=== PATIENT | male | born 1945 | race Caucasian/White ===

== ENCOUNTER → 2025-05-05 | Outpatient (CLI) | payer MEDICARE, BC, SELFPAY ==
[2025-05-05 14:15] LABS: Anion Gap 10 (7-16); BUN/Creatinine Ratio 14 Ratio (12-20); Blood Urea Nitrogen 17 mg/dL (9-23); Calcium 10.0 mg/dL (8.3-10.6); Carbon Dioxide 29.1 mMol/L (20.0-31.0); Chloride 106 mMol/L (98-107); Creatinine (Component) 1.2 mg/dL (0.6-1.3); Glucose 99 mg/dL (74-106); Magnesium 2.1 mg/dL (1.6-2.6); Osmolality,Calculated 290 (275-295); Potassium 5.4 mMol/L (3.4-5.1); Sodium 145 mMol/L (136-145); eGFR > 60 See Note
== END | disposition home or self-care (01) ==
LOC: COPL 13:06
PROVIDERS: PCP Family Medicine; Referring Provider Internal Medicine Cardiovascular Disease; Visit Provider Internal Medicine Cardiovascular Disease
DX: I48.0 Paroxysmal atrial fibrillation (principal)
CPT/HCPCS: 36415; 80048; 83735